=== PATIENT | female | born 1980 | race Asian ===

== ENCOUNTER 2020-12-20 15:57 | Outpatient (CLI) | payer OTHER | END 2020-12-20 20:42 | disposition home or self-care (01) | LOC: RAD 15:57 | PROVIDERS: ATTEND Internal Medicine | DX: M13.0 Polyarthritis, unspecified (principal) ==

== ENCOUNTER 2020-12-22 08:15 | Outpatient (CLI) | payer OTHER ==
[2020-12-22 08:48] LABS: PLATELET COUNT 314 K/uL (152-353)
== END 2020-12-22 22:02 | disposition home or self-care (01) ==
LOC: LABW 08:15
PROVIDERS: ATTEND Internal Medicine
DX: M13.0 Polyarthritis, unspecified (principal)
CPT/HCPCS: 36415; 80053; 81000; 84439; 84443; 84550; 85027; 85652; 86038; 86140; 86430

== ENCOUNTER 2022-12-03 08:43 | Outpatient (CLI) | payer BC | END 2022-12-03 20:46 | disposition home or self-care (01) | LOC: MAMMO 08:43 | PROVIDERS: ATTEND Obstetrics & Gynecology | DX: Z12.31 Encounter for screening mammogram for malignant neoplasm of breast (principal) ==